=== PATIENT | female | born 1945 | race Caucasian/White ===

== ENCOUNTER 2017-06-17 11:04 | Day surgery (SDC) | payer MEDICARE, BC ==
[2017-06-17] MEDS ORDERED: Propofol 200 MG/20 ML SDV ONE (11:17)
[2017-06-17] MEDS ORDERED: Sodium Chloride 0.9% 5 ML Syringe FLUSH PRN (11:30)
[2017-06-17] MEDS ORDERED: Lactated Ringers 1,000 ML IV SCH (11:30)
--- NOTE | 2017-06-17 12:36 | PCM.PN ---
- General Info Date of Service: 06/17/17 - Review of Systems Systems Review Comment:: 72-year-old female referred by Cris Squires for EGD and colonoscopy. The patient has symptoms of dysphasia and also has a known family history of colon cancer in her sister. She is medically stable to proceed today with no significant change in her health status since her recent history and physical which is reviewed. I discussed the proposed upper and lower endoscopy with the patient. Risks such as bleeding and GI injury reviewed. She appears to understand and agrees to proceed. - Patient Data Vitals - Most Recent: Last Vital Signs Temp 96.5 F 06/17/17 11:20 Pulse 70 06/17/17 12:20 Resp 18 06/17/17 11:20 BP 143/65 H 06/17/17 12:20 Pulse Ox 93 L 06/17/17 11:20 Weight - Most Recent: 77.111 kg Med Orders - Current: Current Medications Lactated Ringer's (Ringers, Lactated) 1,000 mls @ 50 mls/hr IV ASDIRECTED KAL Last Admin: 06/17/17 11:42 Dose: 50 mls/hr Sodium Chloride (Syrex Flush) 5 ml FLUSH Q8HR PRN PRN Reason: Keep Vein Open Discontinued Medications Propofol (Diprivan 20 Ml) Confirm Administered Dose 400 mg .ROUTE .STK-MED ONE Stop: 06/17/17 11:18 - Problem List Review Problem List Initiated/Reviewed/Updated: Yes - My Orders Last 24 Hours: My Active Orders 06/17/17 11:30 Patient to Empty Bladder [RC] ASDIRECTED Peripheral IV Care [RC] . DIRECTED Verify Patient Consent Obtain [RC] ASDIRECTED Lactated Ringers [Ringers, Lactated] 1,000 ml IV ASDIRECTED Sodium Chloride 0.9% [Syrex Flush] 5 ml FLUSH Q8HR PRN Peripheral IV Insertion Adult [OM.PC] Routine 06/17/17 Breakfast Nothing Per Oral Diet [DIET] - Assessment Assessment:: Dysphasia Family history of colon cancer - Plan Plan:: EGD and colonoscopy
[2017-06-17] MEDS ORDERED: Propofol 200 MG/20 ML SDV IV ONE (12:37)
[2017-06-17] MEDS ORDERED: Glycopyrrolate 0.2 MG/ML 5 ML MDV IV ONE (12:37)
[2017-06-17] MEDS ORDERED: ePHEDrine 50 MG/ML SDV IV ONE (12:37)
--- NOTE | 2017-06-17 13:35 | PCM.OPNOTE ---
- General Post-Op/Procedure Note Date of Surgery/Procedure: 06/17/17 Operative Procedure(s): EGD with Bx and Colonoscopy Findings: Small superficial gastric ulcers Moderate to severe Sigmoid Diverticulosis Pre Op Diagnosis: Dysphagia. Family History of Colon Cancer Post-Op Diagnosis: Gastric Ulcers. Diverticulosis Anesthesia Technique: MAC Primary Surgeon: Horacio Tripathi Pathology: Biopsies of Gastric Antrum Output, Urine Amount: 0 EBL in mLs: 2 Complications: None Condition: Good
[2017-06-17 15:21] VITALS: BP 122/70
--- NOTE | 2017-06-18 00:53 | OR ---
DATE OF SURGERY: 06/17/2017 SURGEON: Horacio Tripathi MD REFERRING PROVIDER: ANN Neil PREOPERATIVE DIAGNOSIS: Dysphagia and family history of colon cancer. POSTOPERATIVE DIAGNOSIS: Gastric ulcers and sigmoid diverticulosis. OPERATION PERFORMED: Esophagogastroduodenoscopy with biopsy and colonoscopy. INDICATIONS FOR SURGERY: This 72-year-old female has a history of symptoms of dysphagia as well as bloating and belching. She also has a known family history of colon cancer in her sister. FINDINGS: On upper endoscopy, the patient's esophagus appears normal. There is no stricturing seen in the esophagus or evidence of narrowing or mass in the oropharynx. In the gastric antrum, the patient has multiple small superficial ulcerations ranging in size from 2 to 5 mm. No active bleeding is seen at this time. The remainder of the stomach appears normal. I do not see significant hiatal hernia. The duodenum was also normal. On colonoscopy, the patient has a moderate to severe degree of sigmoid diverticulosis. Although, this does not appear acutely inflamed or otherwise complicated and the remainder of the colon appears normal. PROCEDURE IN DETAIL: The patient was taken to the operating room. She was given intravenous sedation and with her in the left lateral decubitus position, the esophagus is intubated under direct visualization with the Olympus gastroscope. The scope was advanced down through the esophagus, stomach, and into the duodenum where examination to the third portion was performed. A careful examination of the duodenum was carried out and then the scope was withdrawn back into the stomach where full examination of the gastric lumen is performed including retroflexed examination of the fundus. Biopsies were taken of the mucosa, of the gastric antrum, in the area were multiple small ulcers were noted. These biopsies were taken to rule out H. pylori. After examining the stomach, the GE junction and esophagus were carefully examined as the scope was withdrawn. Attention is turned to colonoscopy. Digital rectal exam was performed showing no rectal masses. The Olympus colonoscope was inserted into the rectum. Retroflexed examination of the rectal canal was performed. The scope was then carefully advanced under direct visualization through the entire length of the colon until the cecum was reached. Cecal acquisition was confirmed by noting the normal internal cecal anatomy including the appendiceal orifice and ileocecal valve and also noting the light to transilluminate the abdominal wall in the right lower quadrant. After examining the cecum, the scope was slowly withdrawn, sequentially re-examining the colonic segments until the entire colon and rectum had been fully examined. The scope was then removed, and the patient was taken from the operating room in satisfactory condition. ESTIMATED BLOOD LOSS: 2 mL. COMPLICATIONS: None. PROGNOSIS: Good. /[id number]/MODL
--- NOTE | 2017-06-18 09:52 | PN ---
06/17/2017PATIENT NAME: RIVAS LEONARDO 72-year-old female referred by Cris Squires for EGD and colonoscopy. The patient has symptoms of dysphagia and also has a known family history of colon cancer in her sister. She is medically stable to proceed today with no significant change in her health status since her recent history and physical which was reviewed. I have discussed the proposed upper and lower endoscopy with the patient. Risks such as bleeding and GI injury were reviewed. She appears to understand and agrees to proceed. Dysphagia and family history of colon cancer. EGD and colonoscopy. /[id number]/MODL
== END 2017-06-17 16:02 | disposition home or self-care (01) ==
LOC: KA.SDS 11:04
PROVIDERS: ATTEND Surgery
DX: Z12.11 Encounter for screening for malignant neoplasm of colon (principal); K29.50 Unspecified chronic gastritis without bleeding; K57.30 Diverticulosis of large intestine without perforation or abscess without bleeding; Z80.0 Family history of malignant neoplasm of digestive organs; Z88.8 Allergy status to other drugs, medicaments and biological substances; Z79.82 Long term (current) use of aspirin; Z79.899 Other long term (current) drug therapy
CPT/HCPCS: 00731; 00811; J2704; J3490; J7120

== ENCOUNTER 2021-11-05 06:57 | Day surgery (SDC) | payer MEDICARE, BC ==
[2021-11-05] MEDS: Lactated Ringers 1,000 ML IV SCH (07:27)
[2021-11-05] MEDS: Sodium Chloride 0.9% 10 ML Syringe FLUSH PRN (07:28)
[2021-11-05] MEDS ORDERED: Midazolam 1 MG/ML 2 ML SDV ONE (08:15)
[2021-11-05] MEDS ORDERED: Propofol 200 MG/20 ML SDV ONE (08:15)
[2021-11-05] MEDS ORDERED: Lidocaine 2% 100 MG/5 ML Syringe ONE (08:16)
[2021-11-05] MEDS ORDERED: Glycopyrrolate 0.2 MG/ML SDV ONE (08:16)
[2021-11-05 09:31] VITALS: BP 164/85; PULSE 63
== END 2021-11-05 12:20 | disposition home or self-care (01) ==
LOC: KA.SDS 06:57
PROVIDERS: ATTEND Family Medicine
DX: K29.70 Gastritis, unspecified, without bleeding (principal); R63.4 Abnormal weight loss; I10 Essential (primary) hypertension; G47.30 Sleep apnea, unspecified; E78.00 Pure hypercholesterolemia, unspecified; E66.9 Obesity, unspecified; K21.9 Gastro-esophageal reflux disease without esophagitis; Z68.31 Body mass index [BMI] 31.0-31.9, adult; Z20.822 Contact with and (suspected) exposure to COVID-19; Z79.899 Other long term (current) drug therapy; Z88.8 Allergy status to other drugs, medicaments and biological substances
CPT/HCPCS: 00731; 74176; J2250; J2704; J3490; J7120

== ENCOUNTER 2022-12-03 08:44 | Day surgery (SDC) | payer MEDICARE, BC ==
[2022-12-03] MEDS ORDERED: Sodium Chloride 0.9% 10 ML Syringe FLUSH PRN (09:00)
[2022-12-03] MEDS ORDERED: Propofol 200 MG/20 ML SDV ONE (09:01)
[2022-12-03] MEDS: Lactated Ringers 1,000 ML IV SCH (09:15)
[2022-12-03 12:58] VITALS: BP 124/51; PULSE 69
== END 2022-12-03 12:20 | disposition home or self-care (01) ==
LOC: KA.SDS 08:44
PROVIDERS: ATTEND Family Medicine
DX: K57.32 Diverticulitis of large intestine without perforation or abscess without bleeding (principal); K64.8 Other hemorrhoids; K21.9 Gastro-esophageal reflux disease without esophagitis; Z79.82 Long term (current) use of aspirin; Z79.899 Other long term (current) drug therapy; Z80.0 Family history of malignant neoplasm of digestive organs; Z86.010 Personal history of colon polyps; Z88.8 Allergy status to other drugs, medicaments and biological substances
CPT/HCPCS: 00812; J2704; J7120

== ENCOUNTER 2023-11-07 19:59 | Inpatient (IN) | payer MEDICARE, BC ==
[2023-11-07] MEDS: Sodium Chloride 0.9% 1,000 ML IV ONE (20:30)
[2023-11-07] MEDS: Metoprolol Tartrate 50 MG Tab ONE (20:37)
[2023-11-07] MEDS: Sodium Chloride 0.9% 1,000 ML ONE (20:37)
[2023-11-07 20:39] LABS: ALBUMIN 3.26 g/dL (3.40-5.00); ANION GAP 16.8 mmol/L (5-15); CALCIUM 9.8 mg/dL (8.7-10.3); CARBON DIOXIDE,CO2 26.3 mmol/L (21.0-32.0); CREATININE 1.01 mg/dL (0.51-1.17); EST CRCL DRUG DOSING (CG) 37.33 mL/min; POTASSIUM,K 4.1 mmol/L (3.5-5.1); PROTEIN TOTAL,TP 8.5 g/dL (6.4-8.2)
[2023-11-07] MEDS: Ondansetron 4 MG/2 ML SDV IVPUSH ONE (20:39)
[2023-11-07] MEDS: Metoprolol Tartrate 50 MG Tab PO ONE (20:40)
[2023-11-07] MEDS: Lisinopril 5 MG Tab PO ONE (20:41)
[2023-11-07 20:42] LABS: BASOPHILS ABSOLUTE AUTO 0.03 10^3/uL (0.00-0.10); BASOPHILS PERCENT AUTO 0.2 % (0.0-1.0); HEMATOCRIT 41.6 % (37.0-47.0); HEMOGLOBIN 13.7 g/dL (12.0-16.0); IMMATURE GRAN ABSOLUTE AUTO 0.09 10^3/uL (0.00-0.50); IMMATURE GRAN PERCENT AUTO 0.5 % (0.0-5.0); LYMPHOCYTES ABSOLUTE AUTO 1.25 10^3/uL (1.00-4.00); LYMPHOCYTES PERCENT AUTO 7.6 % (20.0-40.0); MEAN CORPUSCULAR HEMOGLOBIN 29.1 pg (27.0-31.0); MEAN CORPUSCULAR HGB CONC 32.9 g/dL (32.0-36.0); MEAN CORPUSCULAR VOLUME 88.5 fL (82.0-92.0); MEAN PLATELET VOLUME 9.8 fL (7.4-10.4); MONOCYTES ABSOLUTE AUTO 1.23 10^3/uL (0.10-0.80); MONOCYTES PERCENT AUTO 7.4 % (2.0-8.0); NEUTROPHILS ABSOLUTE AUTO 13.92 10^3/uL (2.50-7.00); NEUTROPHILS PERCENT AUTO 84.3 % (50.0-70.0); PLATELET COUNT,PLT 247 10^3/uL (150-400); RED CELL DISTRIBUTION WIDTH 12.6 % (11.5-14.5); WHITE BLOOD CELL COUNT,WBC 16.52 10^3/uL (5.00-10.00)
[2023-11-07 20:42] LABS: APPEARANCE,URINE SLIGHTLY CLOUDY (CLEAR); BILIRUBIN,URINE SMALL (NEGATIVE); COLOR,URINE YELLOW (YELLOW); GLUCOSE,URINE NEGATIVE (NEGATIVE); KETONES,URINE 40 mg/dL (NEGATIVE); LEUKOCYTE ESTERASE,URINE MODERATE (NEGATIVE); NITRITE,URINE POSITIVE (NEGATIVE); OCCULT BLOOD,URINE MODERATE (NEGATIVE); PROTEIN,URINE 100 mg/dL (NEGATIVE)
[2023-11-07 20:44] LABS: EPITHELIAL CELLS,URINE FEW /LPF; RBC,URINE 0-5 /HPF (0-5); WBC,URINE 20-30 /HPF (0-5)
[2023-11-07 20:45] LABS: BACTERIA,URINE FEW /HPF (NONE TO FEW)
[2023-11-07] MEDS: Piperacillin/Tazobactam 4.5 GM in Sodium Chloride 0.9% 100 ML IV SCH (21:30)
[2023-11-07] MEDS: Iopamidol 755 Mg/ML 100 ML Bottle IV ONE (21:37)
[2023-11-07] MEDS: Sodium Chloride 0.9% 50 ML IV SCH (21:37)
[2023-11-07] MEDS: Sodium Chloride 0.9% 1,000 ML IV SCH (22:27)
[2023-11-08] MEDS ORDERED: Albuterol 8 GM Inhaler INH PRN (00:43)
[2023-11-08] MEDS ORDERED: Sodium Chloride 0.9% 10 ML Syringe FLUSH PRN (01:04)
[2023-11-08 02:07] LABS: LACTIC ACID 1.3 mmol/L (0.4-2.0)
[2023-11-08] MEDS: Sodium Chloride 0.9% 50 ML IV SCH (05:56)
[2023-11-08] MEDS: Pantoprazole 40 MG Tab.CR PO SCH (06:10)
[2023-11-08 08:06] LABS: BASOPHILS ABSOLUTE AUTO 0.02 10^3/uL (0.00-0.10); BASOPHILS PERCENT AUTO 0.1 % (0.0-1.0); EOSINOPHILS ABSOLUTE AUTO 0.01 10^3/uL (0.10-0.30); EOSINOPHILS PERCENT AUTO 0.1 % (1.0-3.0); HEMOGLOBIN 10.7 g/dL (12.0-16.0); IMMATURE GRAN ABSOLUTE AUTO 0.06 10^3/uL (0.00-0.50); IMMATURE GRAN PERCENT AUTO 0.4 % (0.0-5.0); LYMPHOCYTES ABSOLUTE AUTO 0.88 10^3/uL (1.00-4.00); LYMPHOCYTES PERCENT AUTO 6.1 % (20.0-40.0); MEAN CORPUSCULAR HEMOGLOBIN 29.2 pg (27.0-31.0); MEAN CORPUSCULAR HGB CONC 32.4 g/dL (32.0-36.0); MEAN CORPUSCULAR VOLUME 89.9 fL (82.0-92.0); MEAN PLATELET VOLUME 9.4 fL (7.4-10.4); MONOCYTES ABSOLUTE AUTO 1.29 10^3/uL (0.10-0.80); NEUTROPHILS ABSOLUTE AUTO 12.05 10^3/uL (2.50-7.00); NEUTROPHILS PERCENT AUTO 84.3 % (50.0-70.0); PLATELET COUNT,PLT 223 10^3/uL (150-400); RED BLOOD CELL COUNT 3.67 10^6/uL (3.80-5.50); RED CELL DISTRIBUTION WIDTH 12.9 % (11.5-14.5); WHITE BLOOD CELL COUNT,WBC 14.31 10^3/uL (5.00-10.00)
[2023-11-08 08:23] LABS: CALCIUM 8.4 mg/dL (8.7-10.3); CREATININE 0.95 mg/dL (0.51-1.17); EST CRCL DRUG DOSING (CG) 39.85 mL/min; MAGNESIUM 1.8 mg/dL (1.8-2.4)
[2023-11-08] MEDS: Aspirin 81 MG Tab.Chew PO SCH (08:43)
[2023-11-08] MEDS: Lisinopril 5 MG Tab PO SCH (08:44)
[2023-11-08] MEDS: Metoprolol Tartrate 25 MG Tab PO SCH (08:44)
[2023-11-08] MEDS: Enoxaparin 40 MG/0.4 ML Syringe SUBCUT SCH (08:49)
[2023-11-08] MEDS: Mometasone Furoate Powder 220 MCG/Puff 14 Dose Inhaler INH SCH (08:57)
[2023-11-08] MEDS: Ciprofloxacin in D5W 400 MG in Premix Bag 1 BAG IV SCH ×2 (12:20→14:59)
[2023-11-08] MEDS: Ondansetron 4 MG/2 ML SDV IV PRN (15:30)
[2023-11-08] MEDS: Sertraline 50 MG Tab PO SCH (20:46)
[2023-11-08] MEDS: Rosuvastatin 10 MG Tab PO SCH (20:46)
[2023-11-08] MEDS: Acetaminophen 325 MG Tab PO PRN (22:52)
[2023-11-09 07:20] LABS: BASOPHILS ABSOLUTE AUTO 0.02 10^3/uL (0.00-0.10); BASOPHILS PERCENT AUTO 0.2 % (0.0-1.0); EOSINOPHILS ABSOLUTE AUTO 0.08 10^3/uL (0.10-0.30); EOSINOPHILS PERCENT AUTO 0.8 % (1.0-3.0); HEMATOCRIT 33.1 % (37.0-47.0); HEMOGLOBIN 10.6 g/dL (12.0-16.0); IMMATURE GRAN ABSOLUTE AUTO 0.06 10^3/uL (0.00-0.50); IMMATURE GRAN PERCENT AUTO 0.6 % (0.0-5.0); MEAN CORPUSCULAR HEMOGLOBIN 28.6 pg (27.0-31.0); MEAN CORPUSCULAR VOLUME 89.2 fL (82.0-92.0); MEAN PLATELET VOLUME 9.6 fL (7.4-10.4); MONOCYTES ABSOLUTE AUTO 0.91 10^3/uL (0.10-0.80); MONOCYTES PERCENT AUTO 9.1 % (2.0-8.0); NEUTROPHILS ABSOLUTE AUTO 7.97 10^3/uL (2.50-7.00); NEUTROPHILS PERCENT AUTO 79.3 % (50.0-70.0); PLATELET COUNT,PLT 224 10^3/uL (150-400); RED BLOOD CELL COUNT 3.71 10^6/uL (3.80-5.50); WHITE BLOOD CELL COUNT,WBC 10.04 10^3/uL (5.00-10.00)
[2023-11-09 07:37] LABS: ANION GAP 12.3 mmol/L (5-15); CALCIUM 8.6 mg/dL (8.7-10.3); CARBON DIOXIDE,CO2 25.1 mmol/L (21.0-32.0); CREATININE 0.83 mg/dL (0.51-1.17); EST CRCL DRUG DOSING (CG) 45.61 mL/min; POTASSIUM,K 3.4 mmol/L (3.5-5.1)
[2023-11-09] MEDS: Lactobacillus Rhamnosus GG (Probiotic) Cap PO SCH (11:57)
[2023-11-10 07:51] LABS: BASOPHILS ABSOLUTE AUTO 0.03 10^3/uL (0.00-0.10); BASOPHILS PERCENT AUTO 0.3 % (0.0-1.0); EOSINOPHILS ABSOLUTE AUTO 0.13 10^3/uL (0.10-0.30); EOSINOPHILS PERCENT AUTO 1.4 % (1.0-3.0); HEMATOCRIT 29.8 % (37.0-47.0); HEMOGLOBIN 9.9 g/dL (12.0-16.0); IMMATURE GRAN ABSOLUTE AUTO 0.08 10^3/uL (0.00-0.50); IMMATURE GRAN PERCENT AUTO 0.8 % (0.0-5.0); LYMPHOCYTES ABSOLUTE AUTO 0.77 10^3/uL (1.00-4.00); LYMPHOCYTES PERCENT AUTO 8.1 % (20.0-40.0); MEAN CORPUSCULAR HEMOGLOBIN 29.3 pg (27.0-31.0); MEAN CORPUSCULAR HGB CONC 33.2 g/dL (32.0-36.0); MEAN CORPUSCULAR VOLUME 88.2 fL (82.0-92.0); MEAN PLATELET VOLUME 9.8 fL (7.4-10.4); MONOCYTES ABSOLUTE AUTO 0.74 10^3/uL (0.10-0.80); MONOCYTES PERCENT AUTO 7.8 % (2.0-8.0); NEUTROPHILS ABSOLUTE AUTO 7.78 10^3/uL (2.50-7.00); NEUTROPHILS PERCENT AUTO 81.6 % (50.0-70.0); PLATELET COUNT,PLT 231 10^3/uL (150-400); RED BLOOD CELL COUNT 3.38 10^6/uL (3.80-5.50); RED CELL DISTRIBUTION WIDTH 12.9 % (11.5-14.5); WHITE BLOOD CELL COUNT,WBC 9.53 10^3/uL (5.00-10.00)
[2023-11-10 08:00] LABS: ANION GAP 12.4 mmol/L (5-15); C-REACTIVE PROTEIN 11.67 mg/dL (0.00-0.50); CARBON DIOXIDE,CO2 26.2 mmol/L (21.0-32.0); CREATININE 0.69 mg/dL (0.51-1.17); EST CRCL DRUG DOSING (CG) 54.86 mL/min; MAGNESIUM 1.7 mg/dL (1.8-2.4); POTASSIUM,K 3.6 mmol/L (3.5-5.1)
[2023-11-10] MEDS: cefTRIAXone 2 GM Vial IVPUSH SCH (11:22)
[2023-11-10] MEDS ORDERED: Haloperidol Lactate 5 MG/ML SDV IM PRN (16:20)
[2023-11-10] MEDS: Melatonin 3 MG Tab PO PRN (20:25)
[2023-11-11 11:06] VITALS: BP 183/78; PULSE 59
== END 2023-11-11 12:32 | disposition swing bed (61) | DRG 871 ==
LOC: KA.ED 19:59 → KA.MS 22:45
PROVIDERS: ADMIT Physician Assistant; ATTEND Internal Medicine
DX: A41.9 Sepsis, unspecified organism (principal); G93.41 Metabolic encephalopathy; N39.0 Urinary tract infection, site not specified; N12 Tubulo-interstitial nephritis, not specified as acute or chronic; F03.A3 Unspecified dementia, mild, with mood disturbance; F05 Delirium due to known physiological condition; I25.10 Atherosclerotic heart disease of native coronary artery without angina pectoris; R65.20 Severe sepsis without septic shock; H54.7 Unspecified visual loss; E78.00 Pure hypercholesterolemia, unspecified; I10 Essential (primary) hypertension; J44.9 Chronic obstructive pulmonary disease, unspecified; G47.30 Sleep apnea, unspecified; K21.9 Gastro-esophageal reflux disease without esophagitis; E66.9 Obesity, unspecified; Z95.1 Presence of aortocoronary bypass graft; Z90.710 Acquired absence of both cervix and uterus; Z88.8 Allergy status to other drugs, medicaments and biological substances; Z79.82 Long term (current) use of aspirin; Z79.899 Other long term (current) drug therapy; Z79.51 Long term (current) use of inhaled steroids; Z87.81 Personal history of (healed) traumatic fracture; Z68.31 Body mass index [BMI] 31.0-31.9, adult; Z90.89 Acquired absence of other organs; Z98.890 Other specified postprocedural states; Z95.5 Presence of coronary angioplasty implant and graft; Z87.891 Personal history of nicotine dependence
CPT/HCPCS: 36415; 71260; 74177; 80048; 80053; 81001; 82550; 83605; 83735; 85025; 86140; 87040; 87086; 96361; 96374; 99284; 99285-25; A9270-GY; J0696; J0744; J1650; J2405; J2543; J3490; J7030; Q3014; Q9967

== ENCOUNTER 2023-11-11 09:00 | Inpatient (IN) | payer MEDICARE, BC ==
[2023-11-11] MEDS ORDERED: Ondansetron 4 MG/2 ML SDV IV PRN (13:26)
[2023-11-11] MEDS ORDERED: Haloperidol Lactate 5 MG/ML SDV IM PRN (13:26)
[2023-11-11] MEDS ORDERED: Sodium Chloride 0.9% 50 ML IV SCH ×2 (13:26)
[2023-11-11] MEDS ORDERED: Sodium Chloride 0.9% 10 ML Syringe FLUSH PRN ×2 (13:26)
[2023-11-11] MEDS: Lactobacillus Rhamnosus GG (Probiotic) Cap PO SCH (20:36)
[2023-11-11] MEDS: Rosuvastatin 10 MG Tab PO SCH (20:36)
[2023-11-11] MEDS: Metoprolol Tartrate 25 MG Tab PO SCH (20:36)
[2023-11-11] MEDS: Lisinopril 5 MG Tab PO SCH (20:36)
[2023-11-11] MEDS: Mometasone Furoate Powder 220 MCG/Puff 14 Dose Inhaler INH SCH (20:36)
[2023-11-11] MEDS: Sertraline 50 MG Tab PO SCH (20:36)
[2023-11-12] MEDS: Pantoprazole 40 MG Tab.CR PO SCH (05:47)
[2023-11-12] MEDS: Aspirin 81 MG Tab.Chew PO SCH (08:45)
[2023-11-12] MEDS: Cephalexin 250 MG Cap PO SCH (08:45)
[2023-11-12] MEDS: Enoxaparin 40 MG/0.4 ML Syringe SUBCUT SCH (08:45)
[2023-11-12] MEDS: Melatonin 3 MG Tab PO PRN (20:52)
[2023-11-13] MEDS: Bisacodyl 5 MG Tab PO PRN (11:36)
[2023-11-13] MEDS ORDERED: hydrALAZINE 20 MG/ML SDV IVPUSH PRN (11:51)
[2023-11-13] MEDS: Lisinopril 5 MG Tab PO SCH (21:20)
[2023-11-14] MEDS: Acetaminophen 325 MG Tab PO PRN (08:12)
[2023-11-18 09:06] LABS: BASOPHILS ABSOLUTE AUTO 0.03 10^3/uL (0.00-0.10); BASOPHILS PERCENT AUTO 0.5 % (0.0-1.0); EOSINOPHILS ABSOLUTE AUTO 0.35 10^3/uL (0.10-0.30); EOSINOPHILS PERCENT AUTO 5.3 % (1.0-3.0); HEMATOCRIT 34.4 % (37.0-47.0); HEMOGLOBIN 10.8 g/dL (12.0-16.0); IMMATURE GRAN ABSOLUTE AUTO 0.03 10^3/uL (0.00-0.50); IMMATURE GRAN PERCENT AUTO 0.5 % (0.0-5.0); LYMPHOCYTES ABSOLUTE AUTO 1.32 10^3/uL (1.00-4.00); MEAN CORPUSCULAR HEMOGLOBIN 28.7 pg (27.0-31.0); MEAN CORPUSCULAR HGB CONC 31.4 g/dL (32.0-36.0); MEAN CORPUSCULAR VOLUME 91.5 fL (82.0-92.0); MEAN PLATELET VOLUME 9.3 fL (7.4-10.4); MONOCYTES ABSOLUTE AUTO 0.33 10^3/uL (0.10-0.80); NEUTROPHILS ABSOLUTE AUTO 4.53 10^3/uL (2.50-7.00); NEUTROPHILS PERCENT AUTO 68.7 % (50.0-70.0); PLATELET COUNT,PLT 473 10^3/uL (150-400); RED BLOOD CELL COUNT 3.76 10^6/uL (3.80-5.50); RED CELL DISTRIBUTION WIDTH 13.1 % (11.5-14.5); WHITE BLOOD CELL COUNT,WBC 6.59 10^3/uL (5.00-10.00)
[2023-11-18 09:22] LABS: ANION GAP 7.5 mmol/L (5-15); CALCIUM 9.2 mg/dL (8.7-10.3); CARBON DIOXIDE,CO2 32.1 mmol/L (21.0-32.0); CREATININE 0.84 mg/dL (0.51-1.17); EST CRCL DRUG DOSING (CG) 45.06 mL/min; MAGNESIUM 1.8 mg/dL (1.8-2.4); POTASSIUM,K 3.6 mmol/L (3.5-5.1)
[2023-11-19 13:35] VITALS: BP 138/64; PULSE 62
== END 2023-11-19 12:47 | disposition home or self-care (01) | DRG 947 ==
LOC: KA.MS 12:32
PROVIDERS: ADMIT Internal Medicine; ATTEND Internal Medicine
DX: R53.1 Weakness (principal); A41.9 Sepsis, unspecified organism; G93.41 Metabolic encephalopathy; R65.20 Severe sepsis without septic shock; N39.0 Urinary tract infection, site not specified; R54 Age-related physical debility; I10 Essential (primary) hypertension; K21.9 Gastro-esophageal reflux disease without esophagitis; F03.90 Unspecified dementia, unspecified severity, without behavioral disturbance, psychotic disturbance, mood disturbance, and anxiety; E86.0 Dehydration; Z79.82 Long term (current) use of aspirin; Z79.899 Other long term (current) drug therapy
CPT/HCPCS: 36415; 80048; 83735; 85025; A9270-GY; J1650; Q3014

== ENCOUNTER 2024-04-20 07:59 | Day surgery (SDC) | payer MEDICARE, BC ==
[2024-04-20] MEDS ORDERED: Midazolam 1 MG/ML 2 ML SDV ONE (08:19)
[2024-04-20] MEDS ORDERED: Propofol 200 MG/20 ML SDV ONE (08:19)
[2024-04-20] MEDS: Lactated Ringers 1,000 ML IV SCH (08:25)
[2024-04-20] MEDS: Sodium Chloride 0.9% 10 ML Syringe FLUSH PRN (08:25)
[2024-04-20] MEDS ORDERED: Glycopyrrolate 0.2 MG/ML SDV ONE (08:46)
[2024-04-20] MEDS ORDERED: Lidocaine 2% 100 MG/5 ML Syringe ONE (08:46)
[2024-04-20 11:58] VITALS: BP 151/74; PULSE 60
== END 2024-04-20 11:50 | disposition home or self-care (01) ==
LOC: KA.SDS 07:59
PROVIDERS: ATTEND Family Medicine
DX: K29.50 Unspecified chronic gastritis without bleeding (principal); K57.30 Diverticulosis of large intestine without perforation or abscess without bleeding; K64.8 Other hemorrhoids; K44.9 Diaphragmatic hernia without obstruction or gangrene; I10 Essential (primary) hypertension; K21.9 Gastro-esophageal reflux disease without esophagitis; J45.909 Unspecified asthma, uncomplicated; Z79.899 Other long term (current) drug therapy
CPT/HCPCS: 00731; 88305; 88342; 99100; J1596; J2250; J2704; J3490; J7120